=== PATIENT | female | born 1955 | race Caucasian/White ===

== ENCOUNTER 2023-10-02 12:59 | Emergency (ER) | payer MEDICARE, MEDICAID ==
[~2023-10-02] VITALS: Ht 154.9 cm; Wt 49.4 kg
[2023-10-02 13:10] VITALS: BP 113/69; PULSE 73; RESP 16; TEMP 98.3; O2SAT 97
[2023-10-02 13:58] LABS: BASOPHILS # (AUTO) 0.1 K/uL (0.00-0.22); BASOPHILS % (AUTO) 1.4 % (0.0-2.0); EOSINOPHILS # (AUTO) 0.1 K/uL (0-0.4); EOSINOPHILS % (AUTO) 1.7 % (0.0-4.0); HEMATOCRIT 35.5 % (36-48); HEMOGLOBIN 11.9 g/dL (12.0-16.0); LYMPHOCYTES # (AUTO) 1.4 K/uL (2.5-16.5); LYMPHOCYTES % (AUTO) 31.7 % (20.5-51.1); MEAN CORPUSCULAR HEMOGLOBIN 30 pg (27-31); MEAN CORPUSCULAR HGB CONC 34 g/dL (33-37); MEAN CORPUSCULAR VOLUME 89.5 fL (80-94); MONOCYTES # (AUTO) 0.4 K/uL (0.8-1.0); MONOCYTES % (AUTO) 9.7 % (1.7-9.3); NEUTROPHILS # (AUTO) 2.5 K/uL (1.8-7.7); NEUTROPHILS % (AUTO) 55.5 % (42.2-75.2); PLATELET COUNT (AUTO) 207 K/uL (140-450); RED BLOOD CELL COUNT(AUTO) 3.97 MIL/uL (4.20-5.40); RED CELL DISTRIBUTION WIDTH 14.4 % (11.6-13.7); WHITE BLOOD COUNT (AUTO) 4.4 K/uL (4.8-10.8)
[2023-10-02 14:09] LABS: ANION GAP 9.4 (8-16); CALCIUM 9.6 mg/dL (8.5-10.1); CARBON DIOXIDE 31.1 mmol/L (21-32); POTASSIUM 4.5 mmol/L (3.5-5.1)
[2023-10-02 14:13] LABS: ALBUMIN 3.5 g/dL (3.4-5.0); BILIRUBIN,DIRECT 0.1 mg/dL (0.0-0.3); TOTAL BILIRUBIN 0.4 mg/dL (0.0-1.0); TOTAL PROTEIN, SERUM 7.3 g/dL (6.4-8.2)
[2023-10-02] MEDS ORDERED: KETOROLAC 30 MG/ML VIAL IM ONE (14:20)
[2023-10-02] MEDS ORDERED: KETOROLAC 30 MG/ML VIAL ONE (15:25)
[2023-10-02 15:32] LABS: APPEARANCE,URINE CLEAR (CLEAR); BILIRUBIN,URINE NEGATIVE (NEGATIVE); BLOOD, URINE NEGATIVE (NEGATIVE); COLOR,URINE YELLOW (YELLOW); LEUKOCYTE ESTERASE ,URINE TRACE (NEGATIVE); NITRITE, URINE NEGATIVE (NEGATIVE); PROTEIN,URINE NEGATIVE (NEGATIVE); UGLUCOSE NEGATIVE (NEGATIVE); UROBILINOGEN,URINE 0.2 EU/dL (0.2 - 1)
[2023-10-02 15:53] LABS: BACTERIA,URINE 0-2 /HPF (None Seen); MUCUS,URINE None Seen /LPF (None Seen); RBC,URINE 0 /HPF (0-5); SQUAMOUS EPITHELIAL CELL,UR 0-3 (FEW) /LPF (0-3 (FEW)); WBC,URINE 0-5 /HPF (0-5)
[2023-10-02] MEDS ORDERED: cephALEXin 500 MG CAP PO ONE (16:50)
[2023-10-02] MEDS ORDERED: DOCU-299 PO (16:54)
[2023-10-02] MEDS ORDERED: CEPH-588 PO (16:54)
[2023-10-02] MEDS ORDERED: PYR100 PO (16:54)
[2023-10-02] MEDS ORDERED: NA P133N16 RC (16:54)
[2023-10-02] MEDS ORDERED: MIRABULK PO (16:54)
[2023-10-02] MEDS ORDERED: ACET-2619 PO (16:55)
[2023-10-02 17:21] VITALS: O2SAT 97
[2023-10-02 17:22] VITALS: BP 114/68; PULSE 71; RESP 18; TEMP 98.1; O2SAT 97
== END 2023-10-02 17:21 | disposition home or self-care (01) ==
LOC: MED 12:59
DX: N39.0 Urinary tract infection, site not specified (principal); K76.89 Other specified diseases of liver; K64.9 Unspecified hemorrhoids; K59.00 Constipation, unspecified; E11.9 Type 2 diabetes mellitus without complications; E03.9 Hypothyroidism, unspecified; K21.9 Gastro-esophageal reflux disease without esophagitis; Z79.4 Long term (current) use of insulin; Z79.899 Other long term (current) drug therapy
CPT/HCPCS: 36415; 74176; 80048; 80076; 81001; 83690; 85025; 96372; 99285; J1885